=== PATIENT | female | born 1965 | race Caucasian/White ===

== ENCOUNTER → 2023-11-17 13:38 | Outpatient (REF) | payer BC, SELFPAY | LOC: RCS 13:38 | PROVIDERS: ATTENDING PHYSICIAN Internal Medicine Cardiovascular Disease; FAMILY PHYSICIAN Family Medicine | DX: R06.09 Other forms of dyspnea (principal) | CPT/HCPCS: 93017; 93350 ==

== ENCOUNTER → 2023-11-28 13:18 | Outpatient (REF) | payer BC, SELFPAY | LOC: HWRAD 13:18 | PROVIDERS: ATTENDING PHYSICIAN Family Medicine | DX: R06.02 Shortness of breath (principal) | CPT/HCPCS: 71046 ==

== ENCOUNTER → 2024-09-19 17:28 | Outpatient (REF) | payer BC, SELFPAY | LOC: UCDH 17:28 | PROVIDERS: ATTENDING PHYSICIAN Emergency Medicine; FAMILY PHYSICIAN Family Medicine | DX: R07.1 Chest pain on breathing (principal) | CPT/HCPCS: 71046; 71100 ==

== ENCOUNTER → 2024-09-20 16:19 | Outpatient (REF) | payer BC, SELFPAY | LOC: HWWDC 16:19 | PROVIDERS: ATTENDING PHYSICIAN Family Medicine | DX: Z12.31 Encounter for screening mammogram for malignant neoplasm of breast (principal) | CPT/HCPCS: 77063; 77067 ==

== ENCOUNTER 2024-12-05 06:18 | Inpatient (IN) | payer BC, SELFPAY ==
[2024-12-04 23:25] VITALS: BP 138/83
[2024-12-04] MEDS: ZOFRAN 4 MG IV (23:50)
[2024-12-04] MEDS: TORADOL 15 MG IV (23:53)
[2024-12-05] VITALS (10 sets, daily range): BP systolic 121–140; BP diastolic 67–79; BMI 27.6; BMI 27.3
[2024-12-05 00:03] LABS: % Basophils 0.6 % (0-2); % Eosinophils 1.9 % (0-6); % Immature Granulocytes 0.3 % (0-0.5); % Lymphocytes 27.4 % (20.5-51.1); % Neutrophils 60.8 % (42.2-75.2); Absolute Basophils 0.1 10^3/uL (0-0.2); Absolute Eosinophils 0.2 10^3/uL (0-0.7); Absolute Lymphocytes 2.9 10^3/uL (1.2-3.4); Absolute Neutrophils 6.4 10^3/uL (1.4-6.5); Hematocrit 37.1 % (37.0-47.0); Hemoglobin 12.8 g/dL (12.0-16.0); Mean Corp Hgb Conc. 34.5 g/dL (33.0-37.0); Mean Corpuscular Hgb 29.3 pg (27.0-31.0); Mean Corpuscular Volume 84.9 fL (81.0-99.0); Mean Platelet Volume 9.4 fL (7.4-10.4); Nucleated Red Blood Cells % 0 %; Platelet Count 195 10^3/uL (130-400); Red Blood Cell Count 4.37 10^6/uL (4.20-5.40); Red Cell Dist. Width 11.9 % (11.5-14.5); White Blood Cell Count 10.5 10^3/uL (4.8-10.8)
[2024-12-05 00:04] LABS: Urine Albumin 1+ (Neg - Trace); Urine Bilirubin Negative (Negative); Urine Character Slightly Cloudy (Clear); Urine Color Yellow; Urine Glucose Negative (Negative); Urine Ketone Negative (Negative); Urine Leukocyte Negative (Negative); Urine Nitrite Negative (Negative); Urine Occult Blood 4+ (Negative); Urine Urobilinogen Negative (Neg - 1+)
[2024-12-05 00:13] LABS: Urine Amorphous Seen; Urine Bacteria Moderate (Negative); Urine Red Blood Cell 16-20 /HPF (0-2)
[2024-12-05 00:18] LABS: ALT (SGPT) 25 U/L (0-35); AST (SGOT) 32 U/L (14-36); Albumin 4.6 g/dl (3.5-5.0); Alkaline Phosphatase 115 U/L (38-126); Blood Urea Nitrogen 18 mg/dl (7-17); Calcium 9.8 mg/dl (8.4-10.2); Carbon Dioxide 24 mmol/L (22-30); Chloride 108 mmol/L (98-107); Glucose 105 mg/dl (70-99); Potassium 3.8 mmol/L (3.5-5.1); Sodium 141 mmol/L (135-145); Total Bilirubin 0.7 mg/dl (0.2-1.3); Total Protein 6.8 g/dl (6.3-8.2); eGFR > 60.00
--- NOTE | 2024-12-05 00:57 | ED.GENMED ---
History of Present Illness
General
Chief Complaint: Flank Pain
Source: patient
Exam Limitations: none
Time Seen by Provider: 12/05/24 00:56
Nursing documentation reviewed up to this point in time: agreed with
History of Present Illness
History of Present Illness:
*Johana Andrew- Aníbal 59 Female that presents with flank pain that has been present since Tuesday.� Was seen in urgent care for an unrelated issue over the weekend and kidney stone was seen on film. �saw [facility] today and they scheduled a
Cystoscopy for . �Denies fever, chills, nausea or vomiting
Dege
Phy Exam
General Physical Exam
General Presentation: well appearing and mild distress
General age: appears stated age
General Skin: warm and dry
General Habitus: normal
General Mental: alert
General Hydration: appears well hydrated
ENT Exam
ENT Exam: EOMI, pharynx normal, neck supple and normocephalic
Eye Exam
Eye Exam: PERRL, cornea clear and conjunctiva normal
Cardiovascular Exam
Cardiovascular Exam: regular rate/rhythm, no edema and no murmur
Pulmonary Exam
Pulmonary Exam: lungs clear and no respiratory distress
Gastrointestinal Exam
Gastrointestinal Exam: normal bowel sounds, non tender, soft, no organomegaly, no pulsatile mass and non distended
Neurological Exam
Neurological Exam: alert and oriented x3
Musculoskeletal Exam
Musculoskeletal Exam: full ROM, no edema, back tenderness and neuro vasc intact
Skin Exam
Skin Exam: normal color and warm/dry
Psychiatric Exam
Psychiatric Exam: normal mood/affect
Course
Orders/Labs/Results
Orders:
Orders
12/04/24 23:33
Ketorolac [Toradol] 15 mg .ROUTE .STK-MED ONE
Ondansetron Injectable [Zofran] 4 mg .ROUTE .STK-MED ONE
12/04/24 23:49
Ondansetron Injectable [Zofran] 4 mg IV NOW STA
12/04/24 23:53
Ketorolac [Toradol] 15 mg IV NOW STA
12/04/24 23:56
Complete Blood Count/With Diff Urgent
Comprehensive Metabolic Panel Urgent
Urinalysis Reflex To Culture Urgent
Date Specimen was Collected: 12/04/24
Time Specimen was Collected: 23:31
Urine Microscopic Reflex Cult Urgent
Urine Culture Urgent
GABBY Source: U
Specimen Description:
Date Specimen was Collected: 12/04/24
Time Specimen was Collected: 23:31
12/05/24 00:52
CT Abd/pel Without Iv Or Oral Urgent
Comment:
Reason For Exam: flank pain
12/05/24 05:20
0.9% Sodium Chloride 1000 ml [Nss] 1,000 ml IV BOLUS
12/05/24 05:52
Admit/Transfer Patient As Directed
Co-Sign Provider:
Level of Care: Inpatient admission
Assign to:: Medical/Surgical
Physician / Group: hospitalist
Diagnosis: kidney stone
Reason for Hospitalization: obstructing kidney stone
Expected length of stay greater than two midnights?: Yes
ELOS- Estimated Length of Stay in days: 2
I certify the patient meets the requirements for IP care: Yes
PRN Pain Medication Management As Directed
May give lesser potent ordered pain med per pt: Yes
preference::
Protocol:: Medication orders for pain may be administered in a
manner that supports deferring to patient preference
when the pt is:
- Requesting an ordered lesser potent pain medication.
Least to most potent pain medications are defined
as: acetaminophen < NSAID < tramadol < opioids
(morphine, oxycodone, hydromorphone).
- Requesting a lesser dose of the same medication IF
ORDERED.
- Requesting a less intrusive route of administration
if both routes are prescribed by the provider (PO <
IV).
12/05/24 05:53
Code Status As Directed
Resuscitation Status: Full Code
12/05/24 06:09
Ondansetron Injectable [Zofran] 4 mg IV NOW STA
12/05/24 06:13
HYDROmorphone [Dilaudid] 0.5 mg IV NOW STA
Abnormal Lab Results
12/04/24
23:56
Absolute Monos (auto) 1.0 H 10^3/uL
(0.1-0.6)
Chloride 108 H mmol/L
(98-107)
BUN 18 H mg/dl
(7-17)
Glucose 105 H mg/dl
(70-99)
Ur Occult Blood Reflex 4+ A
(Negative)
Urine RBC 16-20 A /HPF
(0-2)
Urine Bacteria (Reflex) Moderate A
(Negative)
Urine Albumin (Reflex) 1+ A
(Neg - Trace)
12/04/24 23:56
12/04/24 23:56
Vital Signs
Initial and Last Documented VS:
Initial Vital Signs
Temp Pulse Resp BP Pulse Ox
98.3 F 75 14 138/83 99
12/04/24 23:25 12/04/24 23:25 12/04/24 23:25 12/04/24 23:25 12/04/24 23:25
Last Documented Vital Signs
Temp Pulse Resp BP Pulse Ox
98.0 F 67 14 131/78 96
12/05/24 03:38 12/05/24 03:38 12/04/24 23:25 12/05/24 06:00 12/05/24 06:00
*Critical Care Note
Total Time (30-74mins, 75-104mins- exclusive of procedures): Not Applicable
Update Note
Update Note:
IMPRESSION:
6 mm(maximum axial dimension) obstructing left UPJ calculus
Mild hydronephrosis and perinephric stranding
Punctate nonobstructing left renal calculus
No other acute intra-abdominal pathology
Hysterectomy
Mild atherosclerotic calcifications abdominal aorta and iliofemoral vessels
nerative changes in the spine, pelvis, and hips
Bilateral L3 pars defects with grade 1 anterolisthesis L3 on L4
Patient states that the pain was severe at home. She had some nausea and vomiting. Patient wishes to be brought in for continued ops and pain control.
Patient
ED Attending Note
-
Portions of this chart may have been created with voice recognition software.� Occasional wrong word or��sound alike� substitutions may have occurred due to the inherent limitations of voice recognition software.
Discharge Plan
Departure
Patient Disposition: Admit
Date of Disposition: 12/05/24
Time of Disposition: 05:13
Admit to: Med/Surg
Presentation/result/management discussed w/ accepting MD/DO: Hospitalist
Discharge Problem:
Kidney stone on left side, Acute flank pain
Interventions
Interventions:
*Risk Screen - Suicide Last Done: 12/04/24 23:25
*General Assessment Last Done: 12/05/24 00:35
*Neglect/Abuse Screening Last Done: 12/05/24 00:30
ED- Fall Risk Assessment Last Done: 12/05/24 00:30
*ED COVID-19 Vaccine History Last Done: 12/05/24 00:35
AN-Bsmymv-Rryjfolozn Assessment Last Done: 12/05/24 00:30
ED-Female Genitourinary Assessment Last Done: 12/05/24 00:30
--- NOTE | 2024-12-05 02:47 | DOWNTIME ---
There was a [employer] Downtime on 12/05/2024 from 0100 to 12/05/2023 at 0235 . Downtime documentation of patient's care, including medication administrations, has been reconciled in the electronic record per guidelines. Refer to the
patient's paper chart under the miscellaneous tab to see printed paper medication records and downtime forms.
--- NOTE | 2024-12-05 05:43 | HPS.HSE ---
Family Physician
-
Family Physician: Porfirio Orellana
Chief Complaint
-
Left-sided flank pain
History of Present Illness
This is a 59-year-old female with past medical history significant for recurrent nephrolithiasis status post multiple procedures in the past with presents to the emergency department with persistent left-sided flank pain and gross hematuria.
Patient reports onset of symptoms on Tuesday about 4 days ago when she had hematuria and flank pain. She went to urgent care and had an x-ray which showed a kidney stone that was previously seen in the left kidney has now transition into ureter. It
was read as a 7 mm stone at that time. She was given some antibiotics but patient did not take. She denies having any fevers or chills. She denies any dysuria. Denies any nausea or vomiting. She denies having any headaches.
She was seen by neurology with plans for stone procedure tomorrow. However patient comes back to emergency department today with persistent pain. She has not had fevers. She has not had chills. She is quite uncomfortable. Some improvement with
Toradol.
In the emergency department she was afebrile, blood pressure was 121/75 with a pulse of 67. CBC was unremarkable. Electrolytes BUN/creatinine were all normal. UA with hematuria, some WBCs and moderate bacteria. She has negative nitrites and
negative leukocyte esterase.
She had a CT scan of the abdomen pelvis which showed a 6 mm obstructing left UPJ calculus, mild hydronephrosis and perinephric stranding.
Medical History
Past Medical History
Past Medical History: Reports Hypercholesterolemia, Psychiatric (Anxiety) and Other (Nephrolithiasis)
Past Surgical History: Reports Urological
Social History
Tobacco: Non-smoker
Alcohol: None
Drug: None
Living: With Family
Family History
Family History: Not pertinent
Allergies / Home Medications
Allergies reflects when Allergies were last updated in ffk environment.
Home Medications with original date entered in ffk environment
Allergy/Medication List:
Allergies
Allergy/AdvReac Type Severity Reaction Status Date / Time
ciprofloxacin [From Cipro] Allergy Unknown Verified 12/04/24 23:25
Home Medications
fenofibrate nanocrystallized 48 mg tablet 48 mg PO DAILY 12/05/24
Review of Systems
-
History Source: Patient
Constitutional: Reports No Symptoms
EENT: Reports No Symptoms
Respiratory: Reports No Symptoms
Cardiac: Reports No Symptoms
Abdomen/GI: Reports No Symptoms
: Reports Flank Pain and Dark Urine
Musculoskeletal: Reports No Symptoms
Skin: Reports No Symptoms
Neurological: Reports No Symptoms
Endocrine: Reports No Symptoms
Hematologic/Lymphatic: Reports No Symptoms
Psych: Reports No Symptoms
Physical Exam
Vital Signs
Vital Signs
Temp Pulse Resp BP Pulse Ox
98.0 F 67 14 121/75 95
12/05/24 03:38 12/05/24 03:38 12/04/24 23:25 12/05/24 05:00 12/05/24 05:00
Physical Exam
General: Well Developed, Well Nourished, No Apparent Distress and Comfortable
HEENT: NormoCephalic, Anicteric, Moist mucous membranes and Atraumatic
Respiratory: Clear
Cardiac: S1/S2 and Regular Rhythm
Breast: Deferred by me
GI: Soft, Non Tender, Non Distended and Normal Bowel Sounds
Rectal: Deferred by Provider
Genito-urinary: Deferred by me
Musculoskeletal: No Clubbing, No Cyanosis and No Edema
Skin: Warm
Neuro: Nonfocal/grossly intact
Hematologic/Lymphatic: No Lymphadenopathy
Psych: Calm
Laboratory Results
-
12/04/24 23:56
12/04/24 23:56
Laboratory Results
Total Bilirubin 0.7 mg/dl (0.2-1.3) 12/04/24 23:56
AST 32 U/L (14-36) 12/04/24 23:56
ALT 25 U/L (0-35) 12/04/24 23:56
Alkaline Phosphatase 115 U/L (38-126) 12/04/24 23:56
Data Reviewed
-
Diagnostic Radiology: Image Personally Visualized and interpreted and Report Reviewed by me
CT Scan: Report Reviewed by me
Lab Data: Labs Reviewed by me
Old Records: Reviewed
Impression/Plan
-
IMPRESSION:
59 years old female with history of recurrent nephrolithiasis presents to Emergency Department with of left-sided flank pain and hematuria. No fevers or chills. UA is equivocal with few bacteria and WBCs but negative nitrites and leukocyte
esterase. She is having no dysuria and she is hemodynamically stable. Kidney function is stable with mild hydronephrosis. There was plan for procedure tomorrow.
PLAN:
Obstructing Kidney stone, Left UVJ
- admit to med/surg
- procedure already planned for tomorrow
- npo for now pending confirmation w/ Dr. Mccann
- no need for tamsulosin
- gentle hydration for now
- monitor off abx for now, urgent procedure if febrile
- urology consult
DVT PPX - no blood thinners pending procedure, SCDs
Code status - Full Code
[2024-12-05] MEDS: NSS 1000 IV (05:53)
[2024-12-05] MEDS: ZOFRAN 4 MG IV ×2 (06:20→11:16)
[2024-12-05] MEDS: DILAUDID 0.5 MG IV (06:25)
[2024-12-05] MEDS: LR 1000 IV ×2 (07:57→21:24)
[2024-12-05] MEDS: TRICOR 48 MG PO (07:57)
[2024-12-05] MEDS: ZOLOFT 25 MG PO (07:57)
--- NOTE | 2024-12-05 08:37 | CON.MD ---
Consultation - Medical
-
59F w/ prior urologic h/o URS/LL/stone extraction/stent placement in 2019 for CaOx nephrolithiasis.
No interim stone passage episodes until last 1-2 weeks in 11/2024.
X-ray ribs => 9 mm non-obstructing left renal stone.
KUB ( Urgent Care) => 7 mm stone in region of left UPJ.
Noted onset of hematuria and left lower back pain w/ radiation to LLQ of abdomen in last several days.
Scheduled 12/06 (tomorrow) for left ureteroscopy/laser lithotripsy/stone extraction/stent placement tomorrow.
Seen as outpatient yesterday (12/04) for preop visit.
Presented to ED o/n w/ severe left renal colic.
WBC WNL
Cr WNL
CTAP w/o IV contrast => 7 mm proximal left ureteral stone w/ mild hydronephrosis.
Plan:
- advise keeping current plan for outpatient elective surgery in 24 hrs on 12/06
- PO Toradol prn renal colic
D/w Dr. Guevara.
--- NOTE | 2024-12-05 10:09 | CONS.URO ---
Consultation
-
Date/Time Consultation Requested: 12/05/24
Date/Time Consultation Performed: 12/05/24
Requesting Provider: Ismael
Performing Provider: Ramy
Reason for Consultation: intractable left renal colic, left ureteral stone
Medical History
History of Present Illness
59F w/ h/o CaOx nephrolithiasis s/p URS/LL/stone extraction/stent placement in 2019 presents to ED w/ intractable left renal colic.
Of note, patient scheduled for outpatient [facility] ULS [facility] tomorrow (12/07[facility]
Patient was seen in office for preop visit yesterday (12/05).
Pain was minimal at time of office evaluation, but she noted progressive worsening o/n.
Denies F/C.
+nausea.
Denies hematuria or dysuria.
Past Medical History
Past Medical History: Other (CaOx nephrolithiasis)
Past Surgical History: Urological (URS/LL/stone extraction/stent placement (2019))
Social History
Tobacco: Non-smoker
Alcohol: Occasional
Drug: None
Living: With Family
Employment: Employed ([employer])
Family History
Family History: Reviewed & Not Pertinent
Allergies/Home Medications
Allergies
Allergy/AdvReac Type Severity Reaction Status Date / Time
ciprofloxacin [From Cipro] Allergy Unknown Verified 12/04/24 23:25
Home Medications
�Medication �Instructions �Recorded �Confirmed �Type
fenofibrate nanocrystallized 48 mg 48 mg PO DAILY 12/05/24 12/05/24 History
tablet
Review of Systems
-
History Source: Patient
A 12 point Review of Systems was completed except as noted: Yes
Physical Exam
Vital Signs
Vital Signs
Temp Pulse Resp BP Pulse Ox
97.9 F 71 16 140/79 99
12/05/24 07:38 12/05/24 07:38 12/05/24 07:38 12/05/24 07:38 12/05/24 07:38
Lab / Testing Results
Laboratory Results
12/04/24 23:56
12/04/24 23:56
Physical Exam
General: Well Developed, Well Nourished and Pain
HEENT: Normocephalic and Anicteric
Respiratory: Non Labored Respirations
Cardiac: Regular Rhythm
Breast: Deferred by me
GI: Soft, Non Tender and Non Distended
Rectal: Deferred by Provider
Genito-urinary: No Costovertebral Tend
Musculoskeletal: No Edema
Skin: Warm and Dry
Neuro: AO x 3, No Motor Deficits and Nonfocal/Grossly Intact
Psych: Calm and Intact Judgement
Assessment / Plan
-
Intractable left renal colic
Obstructing proximal left ureteral stone (6 mm) w/ mild left hydronephrosis
WBC WNL
Cr WNL
UA +RBCs
CTAP w/o IV contrast => 6 mm proximal left ureteral stone w/ mild left hydronephrosis and perinephric stranding.
- Toradol 30mg q8hrs (ordered as scheduled)
- Analgesics prn
- Continue tamsulosin 0.4 mg qhs
- NPO@[facility]
- To OR tomorrow (12/06) for left ULS w/ Dr. Mccann
Detailed discussion including SDM had w/ patient regarding potential risks and complications of ULS including but not limited to urosepsis, bleeding, ureteral/bladder injury, risk of ureteral stricture, need for additional emergent
procedures/surgeries.
D/w patient.
D/w Dr. Guevara.
Data Reviewed
-
Total Time Spent with Patient (in minutes): 45
CT Scan: Image personally visualized and interpreted, Report Reviewed by Me, Discussed with Physician and Discussed with Patient
Lab Data: Labs Reviewed, Discussed with Physician and Discussed with Patient
Old Records: Reviewed
--- NOTE | 2024-12-05 10:14 | PTCARENOTE ---
pt aaox3. states 3/10 pain in left flank area. does not want pain med at this time. room air breath sounds clear. asked pt to use urine strainer when going to the bathroom. ivf running as ordered.
[2024-12-05] MEDS: TORADOL 30 MG IV ×2 (11:16→17:39)
--- NOTE | 2024-12-05 12:12 | CM ---
Met with pt at bedside
Pt reports she lives in a 2 story home with her daughter; no steps to enter, 12 steps to 2nd fl, + 1/2 bath
Independent at baseline, employed, drives
DME - none
SNF/HH - no past hx
Has ride at discharge
PCP - Porfirio Orellana
Pharm - [facility] on [address]
Plan - anticipate home no needs when medically stable
--- NOTE | 2024-12-05 12:44 | W.PN.HOSP.TC ---
Today's Communication/Plan
-
N.p.o. at midnight for procedure
OR with urology tomorrow
Likely discharge after procedure on 12/06
Assessment / Plan
Assessment / Plan
#Obstructing Kidney stone, Left UVJ
- Chronic urinary issues for which she follows with Dr. Mccann
- admit to med/surg; NPO @ [facility] on 12/05 into 12/06
- OR planned for morning of 12/06/2024
- no need for tamsulosin
- gentle hydration for now
- monitor off abx for now, urgent procedure if febrile
- urology consult
#Dyslipidemia
- C/W fenofibrate
- No ASCVD history
DVT PPX - no blood thinners pending procedure, SCDs
Diet - Regular, n.p.o. after
Code status - Full Code
Discussed case with urologist
Anticipated Discharge: Within 24 hours
Subjective/Interval History
-
Date of Service: December 05, 2024
Seen and examined at the bedside. No acute events report overnight. AFVSS this morning
Spoke with urology, procedure had to be pushed to 12/06. Offered patient discharge with elective procedure tomorrow but patient prefers to stay in hospital, concerns of worsening pain
Denies any new complaints this morning. States she feels generally well at time of my assessment
Objective Data
-
Vital Signs:
Vital Signs
Temp Pulse Resp BP Pulse Ox
97.9 F 71 16 140/79 99
12/05/24 07:38 12/05/24 07:38 12/05/24 07:38 12/05/24 07:38 12/05/24 07:38
Review of Systems
-
History Source: Patient
All other systems: Reviewed and negative
Physical Exam
-
General: Well Developed, Well Nourished and No Apparent Distress
HEENT: Normocephalic, Atraumatic and Moist Mucous Membranes
Respiratory: Clear to Auscultation and Non Labored Respirations
Cardiac: Regular Rhythm and S1/S2; Negative Murmur, Rub or Gallop
GI: Soft, Nontender, Nondistended and Normal Bowel Sounds
Genito-urinary: Negative Costovertebral Angle Tend
Musculoskeletal: No Clubbing, No Cyanosis and No Edema
Skin: Warm, Dry and Normal Turgor; Negative Rash
Neuro: AO x 3 and Nonfocal/Grossly Intact
Psych: Calm
Data Reviewed
-
Labs: Labs Reviewed by me and Discussed with Patient
[2024-12-06] VITALS (7 sets, daily range): BP systolic 119–143; BP diastolic 73–87
[2024-12-06] MEDS: TORADOL 30 MG IV ×2 (02:35→11:09)
[2024-12-06 06:47] LABS: % Basophils 0.5 % (0-2); % Eosinophils 1.4 % (0-6); % Immature Granulocytes 0.4 % (0-0.5); % Lymphocytes 26.4 % (20.5-51.1); % Monocytes 9.4 % (1.7-9.3); % Neutrophils 61.9 % (42.2-75.2); Absolute Eosinophils 0.1 10^3/uL (0-0.7); Absolute Lymphocytes 2.2 10^3/uL (1.2-3.4); Absolute Monocytes 0.8 10^3/uL (0.1-0.6); Absolute Neutrophils 5.1 10^3/uL (1.4-6.5); Hematocrit 36.2 % (37.0-47.0); Hemoglobin 12.2 g/dL (12.0-16.0); Mean Corp Hgb Conc. 33.7 g/dL (33.0-37.0); Mean Corpuscular Hgb 28.9 pg (27.0-31.0); Mean Corpuscular Volume 85.8 fL (81.0-99.0); Mean Platelet Volume 10.3 fL (7.4-10.4); Nucleated Red Blood Cells % 0 %; Platelet Count 207 10^3/uL (130-400); Red Blood Cell Count 4.22 10^6/uL (4.20-5.40); Red Cell Dist. Width 12.1 % (11.5-14.5); White Blood Cell Count 8.3 10^3/uL (4.8-10.8)
[2024-12-06 06:54] LABS: INR 0.97; PT 13.4 Sec (11.4-14.6)
[2024-12-06 07:22] LABS: Blood Urea Nitrogen 15 mg/dl (7-17); Calcium 8.8 mg/dl (8.4-10.2); Carbon Dioxide 25 mmol/L (22-30); Chloride 110 mmol/L (98-107); Estimated Creatinine Clearance 68 ml/min; Glucose 96 mg/dl (70-99); Potassium 3.6 mmol/L (3.5-5.1); Sodium 142 mmol/L (135-145); eGFR > 60.00
[2024-12-06] MEDS: DILAUDID 0.5 MG IV (08:04)
--- NOTE | 2024-12-06 09:52 | W.SUR.PREOP ---
Pre-Operative Surgical Note
-
I have examined this patient prior to the performance of the scheduled procedure.
The patient's condition is unchanged from the time of the current History and
Physical and the patient is able to undergo the scheduled procedure.
NPO
To OR for left ULS
[2024-12-06] MEDS: LR 1000 IV (11:08)
--- NOTE | 2024-12-06 11:08 | W.PN.HOSP.TC ---
Addendum entered and electronically signed by Malick Guevara, 12/06/24 14:56:
31 minutes utilized in discharge planning and preparation, arranging outpatient follow-up
Original Note:
Today's Communication/Plan
-
OR today
Possible discharge home after procedure
Assessment / Plan
Assessment / Plan
#Obstructing Kidney stone, Left UVJ
- Chronic urinary issues for which she follows with Dr. Mccann
- admit to med/surg; NPO @ [facility] on 12/05 into 12/06
- OR planned for morning of 12/06/2024
- no need for tamsulosin
- gentle hydration for now
- monitor off abx for now, urgent procedure if febrile
- urology consult
#Dyslipidemia
- C/W fenofibrate
- No ASCVD history
DVT PPX - no blood thinners pending procedure, SCDs
Diet - Regular, n.p.o. after
Code status - Full Code
Disposition - possible DC after OR if stable
Discussed case with urologist
Anticipated Discharge: Within 24 hours
Subjective/Interval History
-
Date of Service: December 06, 2024
Seen and examined at bedside. No acute events reported overnight. AFVSS as of this morning
Plan for OR today with urology for stone debulking procedure
She denies any new complaints. Minimal pain at time of my assessment
Objective Data
-
Labs:
Laboratory Results
12/06/24
04:48
WBC 8.3
Hgb 12.2
Hct 36.2 L
Plt Count 207
PT 13.4
INR 0.97
Sodium 142
Potassium 3.6
Chloride 110 H
Carbon Dioxide 25
BUN 15
Creatinine 0.9
Glucose 96
Calcium 8.8
Vital Signs:
Vital Signs
Temp Pulse Resp BP Pulse Ox
98.6 F 67 16 135/78 96
12/06/24 07:20 12/06/24 07:20 12/06/24 07:20 12/06/24 07:20 12/06/24 07:20
I&O
12/05/24 12/06/24 12/07/24
06:59 06:59 06:59
Intake Total 3540 / 3540 480 / 480
Balance 3540 / 3540 480 / 480
Review of Systems
-
History Source: Patient
All other systems: Reviewed and negative
Physical Exam
-
General: Well Developed, Well Nourished and No Apparent Distress
HEENT: Normocephalic, Atraumatic and Moist Mucous Membranes
Respiratory: Clear to Auscultation
Cardiac: Regular Rhythm and S1/S2; Negative Murmur, Rub or Gallop
GI: Soft, Nontender, Nondistended and Normal Bowel Sounds
Musculoskeletal: No Clubbing, No Cyanosis and No Edema
Skin: Warm and Dry; Negative Rash
Neuro: AO x 3 and Nonfocal/Grossly Intact
Psych: Calm
Data Reviewed
-
Labs: Labs Reviewed by me and Discussed with Patient
--- NOTE | 2024-12-06 12:05 | CM ---
Chart reviewed. Met with pt
Pt for OR today
Poss d/c later in day
Has ride home if discharged
Plan - anticipate home no needs
--- NOTE | 2024-12-06 14:42 | W.IMMPOSTOP ---
Surgical Immed Post Op Note
-
Primary Surgeon: Ramy
Pre-op Diagnosis: Left UPJ stone
Post-op Diagnosis: Same
Procedure Performed: left URS/LL/stone extraction/stent placement
Anesthesia Type: LMA
Specimen / Cultures: None/None
Estimated Blood Loss: Negligible
Drains: 4.7Fr x 24 cm JJ left ureteral stent placement
Complications: None
Operative Findings: Final KUB and cysto confirming appropriate stent position.
Daughter (Crystal) updated post-op.
Plan for stent removal (on string tether) on Tuesday AM (12/09) - patient comfortable w/ plan.
--- NOTE | 2024-12-06 14:45 | W.DCSUMMARY ---
Discharge Summary
Discharge Data
Date of Admission: 12/05/24
Date of Discharge: 12/06/24
-
Pending Results: No
Hospital Course
59-year-old female with nephrolithiasis, anxiety, dyslipidemia that presented to the hospital with left-sided flank pain similar to previous episodes of kidney stones. CT abdomen/pelvis without contrast demonstrated a 6 mm stone at the left
ureteropelvic junction associated with mild left hydronephrosis and left perinephric stranding. 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
anterolisthesis of L3 on L4. Was initially scheduled for elective left ureteral stent placement with follow-up for stone retrieval however required hospitalization due to worsening pain. Was treated with as needed analgesic regimen that included
IV Toradol and oxycodone. No signs of urinary tract infection on urinalysis, did not receive any antibiotics during hospital stay. Was taken to the OR on 12/06/[address] Raheel Mccann from urology and had successful left ureteral stent placement.
Was monitored in the postoperative period and stable for discharge on the same day. Patient will plan to follow-up in office with urology. Plan for ureteral stent removal on 12/09/2024. Started on tamsulosin for 7-day course and Pyridium
twice daily for 3 days following procedure. Received a dose of Pyridium and Detrol in the postoperative period. After discharge should follow-up with family doctor in 1 to 2 weeks, and follow-up in office with urologist within 1 to 2 weeks.
Discharge Plan
-
Patient Disposition: Home (Routine Discharge)
Discharge Diagnosis/Procedures: Obstructive ureterolithiasis at left ureterovesicular junction
left ureteral stent placement
Condition: Good
Diet: No added salt
Additional Diets: 64 ounces of water intake daily
Activity: As tolerated
Driving Restrictions: No driving for 24 hours
Bathing Restrictions: None
Blood Work: None required
Others Tests: Speak to your outpatient urologist about further testing
Activity Restrictions/Additional Instructions:
After discharge from the hospital schedule follow-up appointment with your family doctor. Should be seen in the office within 1 to 2 weeks of discharge from the hospital.
Schedule follow-up appointment with urology. Left ureteral stent was placed, plan for removal on 12/09/2024
Instructions: Kidney stone diet, Ureteral stent placement - Discharge instructions
Referrals:
Porfirio Orellana DO [Family Provider] -
Raheel Mccann MD [Active] - in one to two weeks
Additional Discharge Medication Instructions: Use [id number] Tylenol 975 mg up to 4 times daily as needed for pain
Take tamsulosin 0.4 mg nightly for 7 days after discharge
Take Phynazopyridine 200 mg twice daily for 3 days after discharge (may make urine orange in color)
Prescriptions:
New
sertraline 25 mg Tablet
25 mg PO DAILY 30 Days Qty: 30 0RF
tamsulosin 0.4 mg capsule
0.4 mg PO HS 7 Days Qty: 7 0RF
phenazopyridine [Pyridium] 200 mg tablet
200 mg PO BID 3 Days Qty: 6 0RF
Continued
fenofibrate nanocrystallized 48 mg Tablet
48 mg PO DAILY
Discharge Orders:
Discharge Patient (As Directed); Ordered 12/06/24
Ordered By: Malick Guevara
Discharge Date and Time
Print Language: SPANISH
[2024-12-06] MEDS: Pyridium 200 MG PO (15:22)
[2024-12-06] MEDS: DETROL LA 4 MG PO (15:23)
== END 2024-12-06 17:20 | disposition home or self-care (01) | DRG 661 ==
LOC: 2 SOUTH 06:18
PROVIDERS: ADMITTING PHYSICIAN Internal Medicine; ATTENDING PHYSICIAN Internal Medicine; CONSULT PHYSICIAN Surgery; EMERGENCY PHYSICIAN Student in an Organized Health Care Education/Training Program; FAMILY PHYSICIAN Family Medicine
PROC: 0TC78ZZ Extirpation of Matter from Left Ureter, Via Natural or Artificial Opening Endoscopic (ICD-10-PCS; 2024-12-06)
PROC: 0T778DZ Dilation of Left Ureter with Intraluminal Device, Via Natural or Artificial Opening Endoscopic (ICD-10-PCS; 2024-12-06)
DX: N13.2 Hydronephrosis with renal and ureteral calculous obstruction (principal); Z87.442 Personal history of urinary calculi
CPT/HCPCS: 74018; 74176; 76000; 80048; 80053; 81003; 81015; 85025; 85610; 87086; A4300; C1758; C1769; C1894; C2617

== ENCOUNTER → 2025-03-26 10:44 | Outpatient (REF) | payer BC, SELFPAY | LOC: HWRAD 10:44 | PROVIDERS: ATTENDING PHYSICIAN Surgery; FAMILY PHYSICIAN Family Medicine | DX: Z87.442 Personal history of urinary calculi (principal) | CPT/HCPCS: 74018 ==

== ENCOUNTER 2025-08-01 06:36 | Day surgery (SDC) | payer BC, SELFPAY | END 2025-08-01 11:39 | disposition home or self-care (01) | LOC: GI 06:36 | PROVIDERS: ATTENDING PHYSICIAN Internal Medicine; FAMILY PHYSICIAN Family Medicine | DX: Z12.11 Encounter for screening for malignant neoplasm of colon (principal); K64.9 Unspecified hemorrhoids; D12.3 Benign neoplasm of transverse colon; K63.5 Polyp of colon | CPT/HCPCS: 45380; 88305 ==